=== PATIENT | female | born 1955 | race African-American/Black ===

== ENCOUNTER 2016-12-31 16:05 | Emergency (ER) | payer MEDICARE ==
[2016-12-31 16:10] VITALS: BP 131/76; PULSE 81; TEMP 95.5; BMI 30.2
--- NOTE | 2016-12-31 18:32 | PDOC ---
History of Present Illness - General Chief Complaint: Ear Problem Stated Complaint: Wants CT of Ear, c/o pain Time Seen by Provider: 12/31/16 16:51 - History of Present Illness Initial Comments: 12/31/16 18:22 CHIEF COMPLAINT: ear pain HISTORY OF PRESENT ILLNESS: 61 yo F presents sent to fast track by [facility] for [facility] due to left ear pain x "more than one week". Patient reports that she "had an ear infection and I was given levaquin and I've been taking it for 7 days, and it hasn't gotten any better and it's even more swollen now." Patient reports pain and swelling "in front of the ear." Patient denies any fever, chills, nausea, vomiting, diarrhea. PAST MEDICAL HISTORY: Denies past medical history FAMILY HISTORY: Denies SOCIAL HISTORY: Denies tobacco, alcohol, illicit drug use. SURGICAL HISTORY: Denies ALLERGIES: No known drug allergies REVIEW OF SYSTEMS General/Constitutional: Denies fever or chills. Denies weakness. HEENT: Pain and swelling to R ear. Cardiovascular: Denies chest pain or shortness of breath. Respiratory: Denies cough, wheezing, or hemoptysis. Gastrointestinal: Denies nausea, vomiting, diarrhea. Musculoskeletal: Denies joint or muscle swelling or pain. Denies neck or back pain. Skin: Denies rash or easy bruising. Neurologic: Denies headache, vertigo, loss of consciousness, or loss of sensation. PHYSICAL EXAM General Appearance: Well-appearing, appropriately dressed. No apparent distress. HEENT: Tenderness to R tragus and mastoid, minimal tenderness posterior to ear. Minimal erythema and swelling to R auditory canal, R TM intact. EOMI, PERRLA, normal ENT inspection, normal voice, TMs normal, pharynx normal. No conjunctival pallor. No photophobia, scleral icterus. Respiratory/Chest: Lungs CTAB. Cardiovascular: RRR. S1, S2. Musculoskeletal/Extremities: Normal inspection. FROM of all extremities, normal capillary refill. Pelvis Stable. No CVA tenderness. No tenderness to extremities, pedal edema, swelling, erythema or deformity. Integumentary: Appropriate color, dry, warm. 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 Fully oriented, alert. Appropriate mood/affect. Motor strength 5/5. No appreciable EOM palsy, facial droop or sensory deficit. 12/31/16 19:12 Past History - Past Medical History Allergies/Adverse Reactions: Allergies Allergy/AdvReac Type Severity Reaction Status Date / Time No Known Allergies Allergy Verified 12/31/16 16:10 Home Medications: Ambulatory Orders Ibuprofen 600 mg PO QID #28 tablet 12/31/16 Lisinopril 10 mg PO ASDIR 12/31/16 Metoprolol/Hydrochlorothiazide [Metoprolol-Hctz 100-25 mg Tab] 100 mg PO ASDIR 12/31/16 Simvastatin 20 mg PO ASDIR 12/31/16 Cardiac Disorders: Yes (Tachy) HTN: Yes Other medical history: back pain - Suicide/Smoking/Psychosocial Hx Smoking History: Current some day smoker Number of Cigarettes Smoked Daily: 20 Information on smoking cessation initiated: Yes 'Breaking Loose' booklet given: 12/31/16 Hx Alcohol Use: No Drug/Substance Use Hx: No Substance Use Type: None *Physical Exam - Vital Signs Last Vital Signs Temp Pulse Resp BP Pulse Ox 95.5 F L 81 19 131/76 99 12/31/16 16:08 12/31/16 16:08 12/31/16 16:08 12/31/16 16:08 12/31/16 16:08 ED Treatment Course - RADIOLOGY Radiology Studies Ordered: Category Date Time Status TEMPORAL BONES CT W/O CONTRAST [CT] Stat CT Scan 12/31/16 17:52 Ordered Medical Decision Making - Medical Decision Making 12/31/16 18:31 61 yo F presents sent to fast track by [facility] for CT due to left ear pain x "more than one week". -temporal bone CT, r/o mastoiditis 12/31/16 20:41 Ct reveals bilateral chronic mastoiditis, left greater than right. *DC/Admit/Observation/Transfer Diagnosis at time of Disposition: Chronic mastoiditis of both sides - Discharge Dispostion Disposition: HOME Condition at time of disposition: Stable Admit: No - Prescriptions Prescriptions: Ibuprofen 600 mg PO QID #28 tablet - Referrals Referrals: Ang Hightower MD [Primary Care Provider] - Garett Beck MD [Staff Physician] - - Patient Instructions Printed Discharge Instructions: DI for Mastoiditis-Adult Additional Instructions: Please finish the Levaquin prescribed to you by Dr. Mejia. You MUST follow up with ENT within the next 2-3 days. If you develop any fever, chills, vomiting, diarrhea, or worsening pain uncontrolled by the ibuprofen, please return to the ER.
[2016-12-31] MEDS ORDERED: IBUPROFEN 600 MG TABLET (FP) PO ONE ×2 (19:52→19:56)
== END 2016-12-31 20:59 | disposition home or self-care (01) ==
LOC: JERFT 16:05
DX: F17.210 Nicotine dependence, cigarettes, uncomplicated (principal); I10 Essential (primary) hypertension; G89.29 Other chronic pain
CPT/HCPCS: 70480-TC; 99281-25